=== PATIENT | male | born 1990 | race Caucasian/White ===

== ENCOUNTER 2019-03-21 22:07 | Emergency (ER) | payer SELFPAY ==
[2019-03-21 22:36] VITALS: BP 154/80; PULSE 65; TEMP 98.5; BMI 36.6
--- NOTE | 2019-03-21 23:22 | PDOC ---
History of Present Illness - General Chief Complaint: Toothache Stated Complaint: TOOTHACHE,SWELLING,HEADACHE Time Seen by Provider: 03/21/19 22:56 History Source: Patient - History of Present Illness Initial Comments: 03/21/19 23:17 28 year old male with right lower molar and gum pain x 1 day. denies fever/ chills Past History - Past Medical History Allergies/Adverse Reactions: Allergies Allergy/AdvReac Type Severity Reaction Status Date / Time No Known Allergies Allergy Verified 03/21/19 22:35 Home Medications: Ambulatory Orders Amoxicillin/Potassium Clav [Augmentin 875-125 Tablet] 1 each PO BID #20 tablet 03/21/19 Ibuprofen 800 mg PO QID #20 tablet 03/21/19 COPD: No - Suicide/Smoking/Psychosocial Hx Smoking History: Unknown if ever smoked Information on smoking cessation initiated: No Review of Systems - Review of Systems Able to Perform ROS?: Yes Is the patient limited Irish proficient: No Constitutional: No: Symptoms Reported, See HPI, Chills, Diaphoresis, Fever, Loss of Appetite, Malaise, Night Sweats, Weakness, Weight Stable, Unintentional Wgt. Loss, Unexplained wgt Loss, Other HEENTM: Yes: Dental Problems *Physical Exam - Vital Signs Last Vital Signs Temp Pulse Resp BP Pulse Ox 98.5 F 65 18 154/80 100 03/21/19 22:35 03/21/19 22:35 03/21/19 22:35 03/21/19 22:35 03/21/19 22:35 - Physical Exam General Appearance: Yes: Appropriately Dressed HEENT: positive: Other (gum tenderness to right molar + dental caries. no trismus no abscess noted. ) Neck: negative: Tender, Trachea midline, Normal Thyroid, Rigid, Supple, Carotid bruit, Decreased range of motion, Stridor, Lymphadenopathy (R), Lymphadenopathy (L), Rigidity, Tender lateral, Tender midline, Thyromegaly, Other Respiratory/Chest: negative: Chest Tender, Lungs Clear, Normal Breath Sounds, Respiratory Distress, Accessory Muscle Use, Labored Respiration, Rapid RR, Decreased Breath Sounds, Paradoxal Breathing, Crackles, Rales, Rhonchi, Stridor , Wheezing, Hyperresonant, Dullness, Plerual Rub, Other Integumentary: positive: Normal Color, Dry, Warm Neurologic: positive: Fully Oriented, Alert, Normal Mood/Affect *DC/Admit/Observation/Transfer Diagnosis at time of Disposition: Infected dental caries - Discharge Dispostion Disposition: HOME Condition at time of disposition: Good - Prescriptions Prescriptions: Amoxicillin/Potassium Clav [Augmentin 875-125 Tablet] 1 each PO BID #20 tablet Ibuprofen 800 mg PO QID #20 tablet - Referrals - Patient Instructions Printed Discharge Instructions: DI for Tooth Decay Additional Instructions: please follow up with a dentist as soon as possible. take Augmentin as prescribed. Additional Instructions: * Please call your personal physician to report your Emergency Department visit and to report your progress, if any. * If there is no improvement in symptoms in 2 days call your physician. * Return to the Emergency Department for any worsening symptoms. - Post Discharge Activity Forms/Work/School Notes: Back to Work
[2019-03-21] MEDS ORDERED: AMOX TR/POT CLAV 875MG/125MG TABLETS (FP) PO ONE (23:24)
[2019-03-21] MEDS ORDERED: IBUPROFEN 600 MG TABLET (FP) PO ONE ×2 (23:24→23:34)
[2019-03-21] MEDS ORDERED: AMOX TR/POT CLAV 875MG/125MG TABLETS (FP) ONE (23:34)
== END 2019-03-21 23:39 | disposition home or self-care (01) ==
LOC: JER 22:07
DX: K02.9 Dental caries, unspecified (principal)
CPT/HCPCS: 99283-25

== ENCOUNTER 2023-11-10 19:50 | Emergency (ER) | payer OTHER ==
[2023-11-10 20:07] VITALS: BP 161/95; PULSE 72; RESP 20; TEMP 98.6; BMI 37.3
== END 2023-11-10 21:42 | disposition home or self-care (01) ==
LOC: JER 19:50 → JERFT 19:50
DX: R05.9 Cough, unspecified (principal); R09.89 Other specified symptoms and signs involving the circulatory and respiratory systems; R51.9 Headache, unspecified; J02.9 Acute pharyngitis, unspecified; U07.1 COVID-19
CPT/HCPCS: 0241U-QW; 99283-25